=== PATIENT | female | born 1985 | race Caucasian/White ===

== ENCOUNTER 2017-07-27 23:47 | Emergency (ER) | payer OTHER ==
[~2017-07-27] VITALS: Ht 172.7 cm; Wt 175.0 kg
[2017-07-27 23:50] VITALS: BP 173/112; PULSE 87; RESP 16; TEMP 98.7; O2SAT 97
--- NOTE | 2017-07-28 00:23 | PD ---
HPI Chief Complaint: Headache Time Seen by Provider: 00:19 Travel History International Travel<30 days: No Contact w/Intl Traveler<30days: No Traveled to known affect area: No History of Present Illness HPI The patient is a 32 year old female who presents to the [facility] emergency department with a history of nausea and vomiting that was sudden at onset at 9:45 PM. She then developed a severe headache. The pain is in bilateral temples. The pain is described as a throbbing sensation. She reports that it is different from her history of migraine headaches. She denies any fevers or neck pain. She has history of head injury in childhood. She was diagnosed with a concussion. She had PT after the head injury. Since onset of the headache the headache is actually improved with time. She reports having in total 3 episodes of vomiting. On review of systems otherwise, the patient denies having any recent cough, congestion, sore throat, chest pain, shortness of breath, abdominal pain, diarrhea, urinary symptoms, or other neurologic symptoms. The patient has reportedly had a clear rhinorrhea. PCP: Dr. Bernstein. LMP: on it currently and began on the day after . She has PCOS and has a history of irregular periods. FOR[facility]LY [facility] Past Medical History Narrative Medical The patient's past medical history is significant for PCOS, Migraines, DM, Hypertension, hyperlipidemia, depression, bipolar disorder, ADHD, fatty liver, obesity. ADHD: Yes (and autisum) Bipolar Disorder: Yes Anxiety: Yes Depression: Yes High Cholesterol: Yes Diabetes: Yes Patient Takes Glucophage: Yes (07/27/2017 2130) Diminished Hearing: No Hypertension: Yes Migraines: Yes Tetanus Vaccination: < 5 Years ?: Not LMP: 07/27/2017 Past Surgical History Narrative Surgical The patient's past surgical history is reportedly none. Surgical History: No Previous Surgery Social History Alcohol Use: No Tobacco Use: No Substance Use: No Allergies-Medications (Allergen,Severity, Reaction): Coded Allergies: amphetamine (Verified Allergy, Severe, 07/28/17) "heart fluttering" dextroamphetamine (Verified Allergy, Severe, 07/28/17) "heart fluttering" morphine (Verified Allergy, Severe, 07/28/17) "my throat closes up" Reported Meds & Prescriptions Reported Meds & Active Scripts Active Zofran Odt (Ondansetron Odt) 4 Mg Tab 4 Mg SL Q6HR PRN Narrative Medication Latuda, Metformin, amlodipine, bupropion, fluoxetine, lovastatin. Review of Systems Except as stated in HPI: all other systems reviewed are Neg General / Constitutional: No: Fever Eyes: No: Visual changes HENT: Positive: Headaches, Rhinorrhea, No: Sore Throat, Rhinitis, Congestion, Neck Pain Cardiovascular: No: Chest Pain or Discomfort, Dyspnea on exertion Respiratory: No: Shortness of Breath Gastrointestinal: Positive: Nausea, Vomiting, No: Diarrhea, Abdominal Pain, Changes in Bowel Habits Genitourinary: No: Dysuria Musculoskeletal: No: Pain Skin: No Rash Neurologic: Positive: Headache, No: Weakness, Focal Abnormalities, Change in Mentation, Slurred Speech, Sensory Disturbance Psychiatric: No: Depression Endocrine: No: Polydipsia Hematologic/Lymphatic: No: Easy Bruising Physical Exam Narrative General: The patient is a well-developed well-nourished female in no acute distress. Head and Neck exam: Head is normocephalic atraumatic. Eyes: EOMI, pupils are equal round and reactive to light. Nose: Midline septum with pink mucous membranes Mouth: Dentition unremarkable. Moist mucus membranes. Posterior oropharynx is not erythematous. No tonsillar hypertrophy. Uvula midline. Airway patent. Neck: No palpable lymphadenopathy. No nuchal rigidity. No thyromegaly. Negative Brudzinski, negative Kernig sign. Cardiovascular: Regular rate and rhythm without murmurs, gallops, or rubs. Lungs: Clear to auscultation bilaterally. No wheezes, rhonchi, or rales. Abdomen: Soft, with reported tenderness on palpation of the right upper quadrant, no other tenderness on palpation of the other quadrants of the abdomen. No guarding, rebound, or rigidity. Normal bowel sounds are audible. No tenderness on palpation of McBurney's point. Negative Ely's sign. Extremities: No clubbing, cyanosis, or edema. 2+ pulses in all 4 extremities. No calf tenderness on palpation. Back: No costovertebral angle tenderness to palpation. Neurologic Exam: Cranial nerves 2-12 were intact on exam. Strength is 5/5 in all 4 extremities. No sensory deficits noted. Skin Exam: No rash noted. Intact skin that is warm and dry. Data Data Last Documented VS Vital Signs Date Time Temp Pulse Resp B/P (MAP) Pulse Ox O2 Delivery O2 Flow Rate FiO2 07/28/17 03:35 07/28/17 02:43 84 16 95 Room Air 07/27/17 23:50 98.7 Orders Orders Electrocardiogram (07/28/17 00:19) Complete Blood Count With Diff (07/28/17 00:19) Comprehensive Metabolic Panel (07/28/17:) Prothrombin Time / Inr (Pt) (07/28/17:19) Act Partial Throm Time (Ptt) (07/28/17:19) C-Reactive Protein (Crp) (07/28/17:) Lipase (07/28/17:) Urinalysis - C+S If Indicated (07/28/17:) Magnesium (Mg) (07/28/17:19) Chest, Single Ap (07/28/17:) Ct Brain W/O Iv Contrast(Rout) (07/28/17 00:19) Iv Access Insert/Monitor (07/28/17:19) Ecg Monitoring (07/28/17 00:19) Oximetry (07/28/17 00:19) Ed Urine Pregnancytest Poc (07/28/17:19) Sodium Chlor 0.9% 1000 Ml Inj (Ns 1000 M (07/28/17 00:30) Ondansetron Inj (Zofran Inj) (07/28/17 00:30) Acetaminophen (Tylenol) (07/28/17 01:00) Ed Discharge Order (07/28/17 03:30) Labs Laboratory Tests Test 07/28/17 00:34 07/28/17 01:12 White Blood Count 13.0 TH/MM3 Red Blood Count 4.27 MIL/MM3 Hemoglobin 11.8 GM/DL Hematocrit 35.3 % Mean Corpuscular Volume 82.6 FL Mean Corpuscular Hemoglobin 27.6 PG Mean Corpuscular Hemoglobin Concent 33.4 % Red Cell Distribution Width 14.4 % Platelet Count 375 TH/MM3 Mean Platelet Volume 9.1 FL Neutrophils (%) (Auto) 56.5 % Lymphocytes (%) (Auto) 32.3 % Monocytes (%) (Auto) 5.7 % Eosinophils (%) (Auto) 3.6 % Basophils (%) (Auto) 1.9 % Neutrophils # (Auto) 7.3 TH/MM3 Lymphocytes # (Auto) 4.2 TH/MM3 Monocytes # (Auto) 0.7 TH/MM3 Eosinophils # (Auto) 0.5 TH/MM3 Basophils # (Auto) 0.3 TH/MM3 CBC Comment DIFF FINAL Differential Comment Prothrombin Time 10.5 SEC Prothromb Time International Ratio 1.0 RATIO Activated Partial Thromboplast Time 30.0 SEC Blood Urea Nitrogen 8 MG/DL Creatinine 0.79 MG/DL Random Glucose 205 MG/DL Total Protein 8.2 GM/DL Albumin 3.7 GM/DL Calcium Level 9.6 MG/DL Magnesium Level 2.0 MG/DL Alkaline Phosphatase 82 U/L Aspartate Amino Transf (AST/SGOT) 68 U/L Alanine Aminotransferase (ALT/SGPT) 59 U/L Total Bilirubin 0.2 MG/DL Sodium Level 135 MEQ/L Potassium Level 4.0 MEQ/L Chloride Level 101 MEQ/L Carbon Dioxide Level 27.2 MEQ/L Anion Gap 7 MEQ/L Estimat Glomerular Filtration Rate 84 ML/MIN C-Reactive Protein 2.84 MG/DL Lipase 124 U/L Urine Color LIGHT-YELLOW Urine Turbidity CLEAR Urine pH 5.5 Urine Specific [place] 1.011 Urine Protein TRACE mg/dL Urine Glucose (UA) NEG mg/dL Urine Ketones NEG mg/dL Urine Occult Blood SMALL Urine Nitrite NEG Urine Bilirubin NEG Urine Urobilinogen LESS THAN 2.0 MG/DL Urine Leukocyte Esterase NEG Urine WBC 1 /hpf Urine Squamous Epithelial Cells 3 /hpf Urine Calcium Oxalate Crystals OCC /hpf Urine Bacteria OCC /hpf Urine Hyaline Casts 1 /lpf Urine Mucus FEW /lpf Microscopic Urinalysis Comment CULT NOT INDICATED MDM Medical Decision Making Medical Screen Exam Complete: Yes Emergency Medical Condition: Yes Medical Record Reviewed: Yes Interpretation(s) Last Impressions Head CT 07/28/1718 Signed Impressions: Service Date/Time: Friday, July 28, 2017 02:01 - CONCLUSION: Negative noncontrast CT brain. Jose Maria Horn MD Chest X-Ray 07/28/1718 Signed Impressions: Service Date/Time: Friday, July 28, 2017 00:26 - CONCLUSION: The lungs are clear. Jose Maria Horn MD Differential Diagnosis Intracranial hemorrhage, versus meningitis, versus encephalitis, versus normal pressure hydrocephalus, versus migraine headache, versus tension headache, versus viral syndrome Narrative Course During the course of the patients emergency department visit, the patients history, examination, and differential diagnosis were reviewed with the patient. The patient was placed on a color television console monitor with oximetry and frequent blood pressure monitoring. The patient had IV access obtained and blood work sent for analysis. The patient had an ECG done on arrival that shows a sinus rhythm heart rate of 95, no acute ST segment changes. QRS duration is 93 ms, QTC 401 ms, T waves are inverted in V1. The patient was initially provided normal saline 1 L IV fluid bolus, Zofran 4 mg IV, acetaminophen 650 by mouth 1. The patients laboratory studies were reviewed and remarkable for white count of 13, hemoglobin 11.8, platelets 375 with a normal differential, CMP was remarkable for a glucose of 205, GFR of 84, AST 65, ALT 59, C-reactive protein 2.84, lipase 124, PT PTT within normal limits, urinalysis shows small occult blood, occasional calcium oxalate crystals occasional bacteria, culture not indicated. Radiology studies were reviewed and remarkable for a chest x-ray that shows no acute cardiopulmonary disease, CT scan of the brain shows no acute abnormality. I discussed with the patient doing a lumbar puncture to further evaluate and rule out a subarachnoid hemorrhage, versus normal pressure hydrocephalus, versus encephalitis or meningitis, however the patient reports that she is feeling improved. The patient did not want to undergo lumbar puncture at this time. The patient prefers to monitor for any recurrence of symptoms or new symptoms and report back immediately to the emergency department if she feels worse. The patient is resting comfortably and feels better, is alert and in no distress. The patients results and examination findings were discussed with the patient. The repeat examination is unremarkable and benign. The history, exam, diagnostic testing, and current condition do not suggest any significant pathology to warrant further testing, continued ED treatment, admission, or surgical evaluation at this point. The vital signs have been stable. The patient does not have uncontrollable pain, intractable vomiting, or other significant symptoms. The patient's condition is stable and appropriate for discharge. The patient will pursue further outpatient evaluation with a primary care physician or other designated or consulting physician as indicated in the discharge instructions. The patient expressed understanding and was agreeable with this plan. Diagnosis Primary Impression: Headache Qualified Codes: R51 - Headache Referrals: Primary Care Physician 2 days Patient Instructions: Acute Headache (ED), General Instructions Departure Forms: Tests/Procedures, Work Release Enter return to work date: Jul 30, 2017 Med/Other Pt SpecificInfo: Prescription(s) given, No Change to Meds Scripts Ondansetron Odt (Zofran Odt) 4 Mg Tab 4 MG SL Q6HR Y for Nausea/Vomiting, #7 TAB 0 Refills Prov: Archana Sam MD 07/28/17 Disposition: 01 DISCHARGE HOME Condition: Stable Archana Sam MD Jul 28, 2017 00:23
[2017-07-28] MEDS ORDERED: ONDANSETRON HCL 4 MG/2 ML VIAL IV PUSH ONE (00:30)
[2017-07-28] MEDS ORDERED: SODIUM CHLOR 0.9% 1000 ML INJ 1,000 ML IV ONE (00:30)
[2017-07-28 00:42] VITALS: O2SAT 95
--- NOTE | 2017-07-28 00:44 | RADRPT ---
EXAM DATE/TIME: 07/28/2017 00:26 [facility] COMPARISON: No previous studies available for comparison. INDICATIONS : Vomiting, short of breath. MEDICAL HISTORY : None. SURGICAL HISTORY : ENCOUNTER: Initial ACUITY: 1 day PAIN SCORE: 0/10 LOCATION: Bilateral chest FINDINGS: A single view of the chest demonstrates the lungs to be symmetrically aerated without evidence of mas s, infiltrate or effusion. The cardiomediastinal contours are unremarkable. Osseous structures are intact. CONCLUSION: The lungs are clear. Jose Maria Horn MD on July 28, 2017 at 0:42 Board Certified Radiologist. This report was verified electronically.
[2017-07-28 00:49] LABS: AUTOMATED NEUTROPHIL # 7.3 TH/MM3 (1.8-7.7); BASOPHIL # 0.3 TH/MM3 (0-0.2); BASOPHIL % 1.9 % (0.0-2.0); EOSINOPHIL # 0.5 TH/MM3 (0-0.4); EOSINOPHIL % 3.6 % (0.0-4.0); HEMATOCRIT 35.3 % (35.0-46.0); HEMO FLAGS DIFF FINAL; LYMPH % 32.3 % (9.0-44.0); LYMPHOCYTE # 4.2 TH/MM3 (1.0-4.8); MEAN CELL VOLUME 82.6 FL (80.0-100.0); MEAN CORPUSCULAR HEMOGLOBIN 27.6 PG (27.0-34.0); MEAN CORPUSCULAR HGB CONC 33.4 % (32.0-36.0); MONO % 5.7 % (0.0-8.0); NEUT % 56.5 % (16.0-70.0); PLATELET COUNT 375 TH/MM3 (150-450); RED BLOOD COUNT 4.27 MIL/MM3 (4.00-5.30); RED CELL DISTRIBUTION WIDTH 14.4 % (11.6-17.2)
[2017-07-28 00:57] LABS: PROTHROMBIN TIME - PATIENT 10.5 SEC (9.8-11.6)
[2017-07-28] MEDS ORDERED: ACETAMINOPHEN 325 MG TAB PO ONE (01:00)
[2017-07-28 01:01] LABS: ALT (GPT) 59 U/L (10-53); ANION GAP 7 MEQ/L (5-15); AST (GOT) 68 U/L (15-37); BICARBONATE 27.2 MEQ/L (21.0-32.0); BLOOD UREA NITROGEN 8 MG/DL (7-18); CHLORIDE 101 MEQ/L (98-107); GLOMERULAR FILTRATION RATE 84 ML/MIN (>89); SODIUM (NA) 135 MEQ/L (136-145)
[2017-07-28 01:03] LABS: ALKALINE PHOSPHATASE 82 U/L (45-117); TOTAL BILIRUBIN ADULT 0.2 MG/DL (0.2-1.0)
[2017-07-28 01:28] LABS: BACTERIA, URINE OCC /hpf; BLOOD, URINE SMALL (NEG); CALCIUM OXALATE CRYSTALS,URINE OCC /hpf; COMMENT (UR) CULT NOT INDICATED; CULTURE IF INDICATED CULT NOT INDICATED; GLUCOSE,URINE NEG (NEG); HYALINE CAST, URINE 1 /lpf (RARE); KETONE, URINE NEG (NEG); MUCUS URINE FEW /lpf (OCC); NITRITE,URINE NEG (NEG); PH, URINE 5.5 (5.0-8.5); SQUAMOUS EPITHELIAL CELL URINE 3 /hpf (0-5); URINE COLOR LIGHT-YELLOW (YELLW/STRAW)
--- NOTE | 2017-07-28 02:30 | RADRPT ---
EXAM DATE/TIME: 07/28/2017 02:01 [facility] COMPARISON: No previous studies available for comparison. INDICATIONS : Headaches. RADIATION DOSE: 46.14 CTDIvol (mGy) MEDICAL HISTORY : Hypertension. Diabetes mellitus type 2. SURGICAL HISTORY : None. ENCOUNTER: Initial ACUITY: 1 day PAIN SCALE: 7/10 LOCATION: cranial TECHNIQUE: Multiple contiguous axial images were obtained of the head. Using automated exposure control and adj ustment of the mA and/or kV according to patient size, radiation dose was kept as low as reasonably a chievable to obtain optimal diagnostic quality images. DICOM format image data is available electro nically for review and comparison. FINDINGS: CEREBRUM: The ventricles are normal for age. No evidence of midline shift, mass lesion, hemorrhage or acute in farction. No extra-axial fluid collections are seen. POSTERIOR FOSSA: The cerebellum and brainstem are intact. The 4th ventricle is midline. The cerebellopontine angle i s unremarkable. EXTRACRANIAL: The visualized portion of the orbits is intact. SKULL: The calvaria is intact. No evidence of skull fracture. CONCLUSION: Negative noncontrast CT brain. Jose Maria Horn MD on July 28, 2017 at 2:28 Board Certified Radiologist. This report was verified electronically.
[2017-07-28 02:43] VITALS: BP 116/60; PULSE 84; RESP 16; O2SAT 95
[2017-07-28] MEDS ORDERED: ZOFR4TAB3 SL (03:28)
--- NOTE | 2017-07-28 11:38 | EKG ---
Date Performed: 07/28/2017 Time Performed: 00:31:26 PTAGE: 32 years EKG: Sinus rhythm NORMAL ECG NO PREVIOUS TRACING DOCTOR: Bulmaro Sam Interpretating Date/Time 07/28/2017 11:36:42
== END 2017-07-28 03:48 | disposition home or self-care (01) ==
LOC: NEPE 23:47
DX: R51 Headache (principal); R11.2 Nausea with vomiting, unspecified; E11.9 Type 2 diabetes mellitus without complications; E78.00 Pure hypercholesterolemia, unspecified; I10 Essential (primary) hypertension; F31.9 Bipolar disorder, unspecified; R06.02 Shortness of breath; Z79.84 Long term (current) use of oral hypoglycemic drugs; Z79.899 Other long term (current) drug therapy
CPT/HCPCS: 70450; 71010; 80053; 81001; 83690; 83735; 84703; 85025; 85610; 85730; 86140; 93005; 96361; 96374; 99285; J2405; J7030